=== PATIENT | female | born 1950 | race African-American/Black ===

== ENCOUNTER 2018-01-29 07:29 | Emergency (ER) | payer OTHER ==
[~2018-01-29] VITALS: Ht 162.6 cm; Wt 120.0 kg
[~2018-01-29 07:29] MED LIST: ALBU1AER INH; AMLO10 PO; NAPR550 PO; OMPR20CCR PO
[2018-01-29 07:33] VITALS: BP 140/69; PULSE 91; RESP 16; TEMP 98; O2SAT 99
[2018-01-29] MEDS ORDERED: LISI2.5T3 PO (07:41)
[2018-01-29] MEDS ORDERED: AMLO10TA2 PO (07:41)
[2018-01-29] MEDS ORDERED: VENTAER INH (07:41)
[2018-01-29] MEDS ORDERED: SODIUM CHLORIDE 0.9% FLUSH 10 ML FLUSH IVF PRN (08:00)
--- NOTE | 2018-01-29 08:04 | PD ---
HPI Chief Complaint: Pain: Acute or Chronic Time Seen by Provider: 07:49 Travel History International Travel<30 days: No Contact w/Intl Traveler<30days: No Traveled to known affect area: No History of Present Illness HPI 67-year-old female with history of TIA presents to the emergency room for evaluation of left lower extremity, left upper extremity, and posterior head numbness and tingling since waking up this morning at 6:30 AM. Patient states she was having some discomfort in her left leg earlier this week but never any numbness. States when she woke up, for a minute she could not move her leg. She was able to get out of bed but the symptoms have persisted. She denies any weakness or headache. She took 2 baby aspirin this morning which is routine for her. She has history of hypertension, prediabetes, and asthma. PFSH Past Medical History Asthma: Yes Autoimmune Disease: No Blood Disorders: No Heart Rhythm Problems: No Cancer: No Cardiac Catheterization: No Cardiovascular Problems: No High Cholesterol: No Chest Pain: No Congestive Heart Failure: No COPD: No Diabetes: No Endocrine: No Genitourinary: No Hypertension: Yes Musculoskeletal: No Neurologic: No Psychiatric: No Respiratory: Yes Myocardial Infarction: No Sleep Apnea: Yes (cpap) Influenza Vaccination: Yes ?: Not Menopausal: Yes Tubal Ligation: Yes Past Surgical History AICD: No Coronary Artery Bypass Graft: No Pacemaker: No Other Surgery: No Family History Family Myocardial Infarction: Yes (mother and father, 2 sisters) Social History Alcohol Use: Yes (occas) Tobacco Use: No Substance Use: No Allergies-Medications (Allergen,Severity, Reaction): Coded Allergies: No Known Allergies (Verified Adverse Reaction, Unknown, 01/29/18) Reported Meds & Prescriptions Reported Meds & Active Scripts Active Reported Ventolin Hfa 18 GM Inh (Albuterol Sulfate) 90 Mcg/Act Aer 2 Puff INH Q6H PRN Lisinopril 2.5 Mg Tab 2.5 Mg PO DAILY Amlodipine (Amlodipine Besylate) 10 Mg Tab 10 Mg PO DAILY Review of Systems Except as stated in HPI: all other systems reviewed are Neg Physical Exam Narrative GENERAL: Well-nourished, well-developed female no acute distress. Afebrile. Ambulatory. SKIN: Focused skin assessment warm/dry. HEAD: Normocephalic. EYES: No scleral icterus. No injection or drainage. NECK: Supple, trachea midline. No JVD or lymphadenopathy. CARDIOVASCULAR: Regular rate and rhythm without murmurs, gallops, or rubs. RESPIRATORY: Breath sounds equal bilaterally. No accessory muscle use. NEUROLOGICAL: Awake and alert. Cranial nerves II through XII intact. Motor and sensory grossly within normal limits. Five out of 5 muscle strength in all muscle groups. Normal speech. No pronator drift in upper or lower extremities. Normal finger to nose test. Normal heel down santos test. Data Data Last Documented VS Vital Signs Date Time Temp Pulse Resp B/P (MAP) Pulse Ox O2 Delivery O2 Flow Rate FiO2 01/29/18 07:33 98.0 91 16 140/69 (92) 99 Orders Orders Electrocardiogram (01/29/18 07:59) Prothrombin Time / Inr (Pt) (01/29/18 07:59) Act Partial Throm Time (Ptt) (01/29/18 07:59) Complete Blood Count With Diff (01/29/18 07:59) Comprehensive Metabolic Panel (01/29/18 07:59) Troponin I (01/29/18 07:59) Ct Brain W/O Iv Contrast(Rout) (01/29/18 07:59) Ecg Monitoring (01/29/18 07:59) Iv Access Insert/Monitor (01/29/18 07:59) Oximetry (01/29/18 07:59) Sodium Chloride 0.9% Flush (Ns Flush) (01/29/18 08:00) Troponin I (01/29/18 11:04) Electrocardiogram (01/29/18 ) Mri Brain W/O Contrast (01/29/18 ) Troponin I (01/29/18 14:03) Gadodiamide Pf Inj (Omniscan Pf Inj) (01/29/18 09:00) Ed Discharge Order (01/29/18 16:07) Labs Laboratory Tests Test 01/29/18 08:10 01/29/18 11:03 01/29/18 14:10 White Blood Count 5.8 TH/MM3 Red Blood Count 4.42 MIL/MM3 Hemoglobin 12.4 GM/DL Hematocrit 37.0 % Mean Corpuscular Volume 83.7 FL Mean Corpuscular Hemoglobin 28.1 PG Mean Corpuscular Hemoglobin Concent 33.6 % Red Cell Distribution Width 15.6 % Platelet Count 272 TH/MM3 Mean Platelet Volume 7.9 FL Neutrophils (%) (Auto) 32.2 % Lymphocytes (%) (Auto) 51.0 % Monocytes (%) (Auto) 11.8 % Eosinophils (%) (Auto) 3.7 % Basophils (%) (Auto) 1.3 % Neutrophils # (Auto) 1.9 TH/MM3 Lymphocytes # (Auto) 3.0 TH/MM3 Monocytes # (Auto) 0.7 TH/MM3 Eosinophils # (Auto) 0.2 TH/MM3 Basophils # (Auto) 0.1 TH/MM3 CBC Comment DIFF FINAL Differential Comment Prothrombin Time 9.8 SEC Prothromb Time International Ratio 1.0 RATIO Activated Partial Thromboplast Time 29.8 SEC Blood Urea Nitrogen 13 MG/DL Creatinine 0.94 MG/DL Random Glucose 98 MG/DL Total Protein 7.8 GM/DL Albumin 3.3 GM/DL Calcium Level 9.1 MG/DL Alkaline Phosphatase 86 U/L Aspartate Amino Transf (AST/SGOT) 12 U/L Alanine Aminotransferase (ALT/SGPT) 17 U/L Total Bilirubin 0.2 MG/DL Sodium Level 139 MEQ/L Potassium Level 4.1 MEQ/L Chloride Level 107 MEQ/L Carbon Dioxide Level 22.8 MEQ/L Anion Gap 9 MEQ/L Estimat Glomerular Filtration Rate 72 ML/MIN Troponin I LESS THAN 0.02 NG/ML LESS THAN 0.02 NG/ML LESS THAN 0.02 NG/ML MDM Medical Decision Making Medical Screen Exam Complete: Yes Emergency Medical Condition: Yes Medical Record Reviewed: Yes Differential Diagnosis TIA, CVA, electrolyte abnormality, anxiety Narrative Course 67-year-old female with history of diabetes, hypertension, obesity, previous TIA presents to the emergency room for evaluation of intermittent left upper and lower extremity tingling that started this morning upon waking. Patient states her leg initially felt tight. She touched it and had some pain. Patient set up and realized that her legs felt numb. She also experienced numbness in her left upper extremity and behind her head. States she has never had symptoms like that in the past. She denies any objective weakness. Physical exam is reassuring. Patient resting comfortably in bed. No focal neurological deficits. IV access established basic labs obtained. CT of the brain is negative. MRI is negative for acute abnormality. CBC and CMP are unremarkable. Troponin is less than 0.02. EKG shows sinus tachycardia with a rate of [address] changes. While in the emergency room, patient began to experience left upper chest pain. States pain was intermittent but has now resolved. She had no associated radiation of symptoms, diaphoresis, or nausea. Repeat troponin, first troponin since her chest pain started, is less than 0.02. I spoke to the [facility] physician on-call, Dr. Osorio, who feels patient can safely follow up with her primary care physician on an outpatient basis. Given the all of her studies including MRI and 3 troponins have been negative thus far and her symptoms have resolved while in the emergency room, I believe this is reasonable. Patient understands and agrees to this plan. Diagnosis Primary Impression: Left sided numbness Additional Impression: Chest pain Qualified Codes: R07.9 - Chest pain, unspecified Referrals: Primary Care Physician Additional Instructions: Rest and drink plenty of fluids. Tylenol as directed, as needed for pain. Follow-up with your primary care physician concerning your symptoms Return to the emergency room for worsening symptoms. Med/Other Pt SpecificInfo: Prescription(s) given Disposition: 01 DISCHARGE HOME Condition: Stable Cheryl Moseley January 29, 2018 08:04
[2018-01-29 08:20] LABS: AUTOMATED NEUTROPHIL # 1.9 TH/MM3 (1.8-7.7); BASOPHIL # 0.1 TH/MM3 (0-0.2); BASOPHIL % 1.3 % (0.0-2.0); EOSINOPHIL # 0.2 TH/MM3 (0-0.4); EOSINOPHIL % 3.7 % (0.0-4.0); HEMOGLOBIN 12.4 GM/DL (11.6-15.3); MEAN CELL VOLUME 83.7 FL (80.0-100.0); MEAN CORPUSCULAR HEMOGLOBIN 28.1 PG (27.0-34.0); MEAN CORPUSCULAR HGB CONC 33.6 % (32.0-36.0); MEAN PLATELET VOLUME 7.9 FL (7.0-11.0); MONO % 11.8 % (0.0-8.0); MONOCYTE # 0.7 TH/MM3 (0-0.9); NEUT % 32.2 % (16.0-70.0); PLATELET COUNT 272 TH/MM3 (150-450); RED BLOOD COUNT 4.42 MIL/MM3 (4.00-5.30); RED CELL DISTRIBUTION WIDTH 15.6 % (11.6-17.2); WHITE BLOOD COUNT 5.8 TH/MM3 (4.0-11.0)
[2018-01-29 08:27] LABS: PROTHROMBIN TIME - PATIENT 9.8 SEC (9.8-11.6)
[2018-01-29 08:30] LABS: ALBUMIN 3.3 GM/DL (3.4-5.0); AST (GOT) 12 U/L (15-37); BICARBONATE 22.8 MEQ/L (21.0-32.0); BLOOD UREA NITROGEN 13 MG/DL (7-18); CALCIUM 9.1 MG/DL (8.5-10.1); CHLORIDE 107 MEQ/L (98-107); CREATININE 0.94 MG/DL (0.50-1.00); GLOMERULAR FILTRATION RATE 72 ML/MIN (>89); GLUCOSE,RANDOM 98 MG/DL (74-106); SODIUM (NA) 139 MEQ/L (136-145)
[2018-01-29 08:31] LABS: ALT (GPT) 17 U/L (10-53)
[2018-01-29 08:35] LABS: ALKALINE PHOSPHATASE 86 U/L (45-117); TOTAL BILIRUBIN ADULT 0.2 MG/DL (0.2-1.0); TOTAL PROTEIN 7.8 GM/DL (6.4-8.2); TROPONIN I LESS THAN 0.02 NG/ML (0.02-0.05)
[2018-01-29] MEDS ORDERED: GADODIAMIDE PF 287 MG/ML 20 ML VIAL (for RAD MRI) IV PUSH ONE (09:00)
--- NOTE | 2018-01-29 09:00 | RADRPT ---
EXAM DATE: 01/29/2018 8:55 AM EDT AGE/SEX: 67 years / Female INDICATIONS: Left side numbness. CLINICAL DATA: This is the patient's initial encounter. Patient reports that signs and symptoms have been present for 1 day and indicates a pain score of 0/10. MEDICAL/SURGICAL HISTORY: None. Tubal ligation. RADIATION DOSE: 56.35 CTDI (mGy) COMPARISON: No prior [facility] exams available for comparison. TECHNIQUE: CT of the head without contrast. Using automated exposure control and adjustment of the mA and/or kV according to patient size, radiation dose was kept as low as reasonably achievable to ob tain optimal diagnostic quality images. FINDINGS: Cerebrum: The ventricles are normal for age. No evidence of midline shift, mass lesion, hemorrhage or acute infarction. No extraaxial fluid collections are seen. Posterior Fossa: The cerebellum and brainstem are intact. The 4th ventricle is midline. The cerebe llopontine angle is unremarkable. Extracranial: The visualized portion of the orbits is intact. Skull: The calvaria is intact. No evidence of skull fracture. CONCLUSION: 1. No acute intracranial abnormality. Electronically signed by: Tavo Molina MD 01/29/2018 8:58 AM EDT
--- NOTE | 2018-01-29 13:18 | RADRPT ---
EXAM DATE: 01/29/2018 12:51 PM EDT AGE/SEX: 67 years / Female INDICATIONS: Left sided weakness. CLINICAL DATA: This is the patient's initial encounter. Patient reports that signs and symptoms have been present for 1 day and indicates a pain score of 0/10. MEDICAL/SURGICAL HISTORY: Hypertension. Tubal ligation. COMPARISON: No prior exams available for comparison. TECHNIQUE: Multiplanar, multisequence examination of the brain was performed without contrast. FINDINGS: Cerebrum: The ventricles are normal for age. No evidence of midline shift, mass lesion, hemorrhage or acute infarction. No extraaxial fluid collections are seen. The pituitary gland and suprasellar cistern are normal in configuration. White Matter: Minimal signal abnormalities are seen in the white matter. Posterior Fossa: The cerebellum and brainstem are intact. The 4th ventricle is midline. The cerebel lopontine angle is unremarkable. The cerebellar tonsils are normal in position. Diffusion Imaging: No focal areas of restricted diffusion are seen. No evidence of acute infarction . Extracranial: The visualized portions of the orbits and paranasal sinuses are unremarkable. CONCLUSION: 1. No acute findings. No recent infarct or mass effect. Minimal white matter ischemic changes. Electronically signed by: Enrike Cochran MD 01/29/2018 1:17 PM EDT
--- NOTE | 2018-01-29 18:13 | EKG ---
Date Performed: 01/29/2018 Time Performed: 11:18:04 PTAGE: 67 years EKG: SINUS BRADYCARDIA Since previous tracing, no significant change noted BORDERLINE ECG PREVIOUS TRACING : 01/29/2018 08.19 DOCTOR: Jael Del Toro Interpretating Date/Time 01/29/2018 18:11:59
--- NOTE | 2018-01-29 18:13 | EKG ---
Date Performed: 01/29/2018 Time Performed: 08:19:53 PTAGE: 67 years EKG: Sinus rhythm WITH FIRST DEGREE AV BLOCK NONSPECIFIC T-WAVE ABNORMALITY Since previous tracing, no significant hailey nge noted ABNORMAL ECG PREVIOUS TRACING : 10/27/2011 00.14 DOCTOR: Jael Del Toro Interpretating Date/Time 02/03/2018 08:31:56
== END 2018-01-29 16:21 | disposition home or self-care (01) ==
LOC: NEPD 07:29
DX: R20.0 Anesthesia of skin (principal); R07.9 Chest pain, unspecified; I10 Essential (primary) hypertension; J45.909 Unspecified asthma, uncomplicated
CPT/HCPCS: 70450; 70551; 80053; 84484; 85025; 85610; 85730; 93005; A9579